=== PATIENT | male | born 1960 | race Two or more races ===

== ENCOUNTER 2025-07-19 01:17 | Emergency (ER) | payer SELFPAY ==
[~2025-07-19] VITALS: Ht 182.9 cm; Wt 90.7 kg
[2025-07-19] MEDS ORDERED: ONDANSETRON HCL/PF 4 MG/2 ML VIAL ONE ×2 (01:31→02:58)
[2025-07-19] MEDS: IV LR 1000 ML 1,000 ML IV ONE (01:40)
[2025-07-19] MEDS: ONDANSETRON HCL/PF 4 MG/2 ML VIAL IV ONE ×2 (01:41→02:59)
[2025-07-19] MEDS ORDERED: MORPHINE SULFATE INJ 4 MG/ML DISP.SYRIN ONE (01:42)
[2025-07-19] MEDS: MORPHINE SULFATE INJ 2 MG/ML DISP.SYRIN IV ONE (01:43)
[2025-07-19 01:46] LABS: PLATELET COUNT (AUTO) 226 K/uL (150-450); RED BLOOD CELL COUNT(AUTO) 4.83 MIL/uL (4.5-6.0); RED CELL DISTRIBUTION WIDTH 13.0 % (11.5-15.0); WHITE BLOOD COUNT (AUTO) 7.4 K/uL (4.3-11.0)
[2025-07-19 02:06] LABS: ASPARTATE AMINOTRANSFERASE 13 U/L (15-37); CALCIUM, SERUM 9.9 mg/dL (8.5-10.1); CREATININE 0.9 mg/dL (0.6-1.3); SODIUM SERUM 143 mmol/L (136-145); TOTAL PROTEIN, SERUM 7.6 g/dL (6.4-8.2); UREA NITROGEN, BLOOD 24 mg/dL (7-18)
[2025-07-19] MEDS ORDERED: HYDROMORPHONE INJ SYRINGE 1 MG in IV D5W 50 ML IV PRN ×2 (02:30→04:00)
[2025-07-19] MEDS: LABETALOL 20 MG/4 ML VIAL IV PRN (02:30)
[2025-07-19] MEDS ORDERED: CT SWABBABLE VALVE TRANS SET 1 EA INFUS.SET MC ONE (02:31)
[2025-07-19] MEDS ORDERED: IOHEXOL-350 100 ML VIAL IV ONE (02:31)
[2025-07-19] MEDS ORDERED: IV NS 0.9% 250 ML IV ONE (02:31)
[2025-07-19 02:37] LABS: INR 1.07 (0.91-1.10)
[2025-07-19] MEDS ORDERED: NICARDIPINE IN DEXTROSE,ISO-OS 200 ML IV ONE (02:40)
[2025-07-19] MEDS: NICARDIPINE IN NACL, ISO-OSM 200 ML IV PRN (03:03)
[2025-07-19 03:56] LABS: APPEARANCE,URINE CLEAR (CLEAR); BLOOD, URINE NEGATIVE Ery/uL (NEGATIVE); LEUKOCYTE ESTERASE ,URINE NEGATIVE (NEGATIVE); NITRITE, URINE NEGATIVE (NEGATIVE); UGLUCOSE 2+ mg/dL (NEGATIVE)
[2025-07-19] MEDS ORDERED: HYDROMORPHONE 1 MG/1 ML DISP.SYRIN ONE (03:57)
[2025-07-19] MEDS: HYDROMORPHONE 1 MG/1 ML DISP.SYRIN IV ONE (04:01)
[2025-07-19 04:11] VITALS: BP 224/99; TEMP 98.5; O2SAT 100
[2025-07-19 04:15] LABS: ADD URINE CULTURE NO; SQUAMOUS EPITHELIAL CELL,UR 0-2 /HPF (None Seen)
[2025-07-19] MEDS ORDERED: LEVETIRACETAM (500MG) 500 MG/5 ML VIAL IV ONE (04:35)
[2025-07-19] MEDS: LEVETIRACETAM (500MG) 1,000 MG in IV NS 0.9% 90 ML IV STA (04:49)
== END 2025-07-19 05:04 | disposition short-term general hospital (02) ==
LOC: ER 01:19
DX: I60.9 Nontraumatic subarachnoid hemorrhage, unspecified (principal); I10 Essential (primary) hypertension; E78.5 Hyperlipidemia, unspecified; E11.9 Type 2 diabetes mellitus without complications
CPT/HCPCS: 99291; 70498; 96365; 96375; 71045; 96361; 93005; 70496; 85025; 80048; 83690; 80076; 83735; 85610; 85730; 81001; 36415; 84484 ×2; 82962; 70450; J2270; J2405 ×2; J7120; J7030 ×2; J7050; A4223; J1953 ×2; Q9967; J1171